=== PATIENT | female | born 1995 | race Caucasian/White ===

== ENCOUNTER 2017-04-16 10:14 | Day surgery (SDC) | payer BC ==
[2017-04-13 13:42] LABS: BASOPHILS % (AUTO) 0.3 % (0.0-2.0); EOSINOPHILS # (AUTO) 0.1 K/uL (0.0-0.4); EOSINOPHILS % (AUTO) 0.6 % (0.0-4.0); HEMATOCRIT 41.5 % (36-48); HEMOGLOBIN 13.8 g/dL (12.0-16.0); LYMPHOCYTES # (AUTO) 3.2 K/uL (1.0-5.5); LYMPHOCYTES % (AUTO) 34.3 % (20.5-51.5); MEAN CORPUSCULAR HEMOGLOBIN 30 pg (27-31); MEAN CORPUSCULAR HGB CONC 33 % (32-36); MEAN CORPUSCULAR VOLUME 90 fL (79.0-98.0); MONOCYTES # (AUTO) 0.6 K/uL (0.0-1.0); MONOCYTES % (AUTO) 6.3 % (1.7-9.3); NEUTROPHILS # (AUTO) 5.5 K/uL (1.8-7.7); NEUTROPHILS % (AUTO) 58.5 % (40.0-70.0); PLATELET COUNT (AUTO) 388 K/uL (130-430); RED BLOOD CELL COUNT(AUTO) 4.62 MIL/uL (4.2-6.2); RED CELL DISTRIBUTION WIDTH 12.5 % (9.0-15.0); WHITE BLOOD COUNT (AUTO) 9.4 K/uL (4.8-10.8)
[2017-04-13 14:14] LABS: ALBUMIN 3.9 g/dL (3.4-4.8); CREATININE 0.81 mg/dL (0.55-1.30); POTASSIUM 3.8 mmol/L (3.5-5.1); TOTAL BILIRUBIN 0.4 mg/dL (0.0-1.0)
[2017-04-13 14:22] LABS: CALCIUM 8.9 mg/dL (8.4-11.0)
[~2017-04-16] VITALS: Ht 165.1 cm; Wt 101.6 kg
[2017-04-16] MEDS ORDERED: MIDAZOLAM HCL 5 MG/ML VIAL (VERSED) IV ONE (12:30)
[2017-04-16] MEDS ORDERED: DEXAMETHASONE SOD PHOSPHATE 4 MG/ML VIAL IVP ONE (12:30)
[2017-04-16] MEDS ORDERED: fentaNYL CITRATE/PF 100 MCG/2 ML AMP IVP ONE (12:30)
[2017-04-16] MEDS ORDERED: SEVOFLURANE 15 MIN GAS INH ONE (12:30)
[2017-04-16] MEDS ORDERED: NS IRRIG SOLN 1000 ML IR ONE (12:30)
[2017-04-16] MEDS ORDERED: LR 1,000 ML IV.SOLN IV ONE (12:30)
[2017-04-16] MEDS ORDERED: ONDANSETRON HCL 4 MG/2 ML VIAL IVP ONE (12:30)
[2017-04-16] MEDS ORDERED: ROCURONIUM BROMIDE 10 MG/ML (ZEMURON) IV ONE (12:30)
[2017-04-16] MEDS ORDERED: PROPOFOL 200MG/ 20ML VIAL (DIPRIVAN) IV ONE (12:30)
[2017-04-16] MEDS ORDERED: KETOROLAC TROMETHAMINE 30 MG VIAL IVP ONE (12:30)
[2017-04-16] MEDS ORDERED: ALFENTANIL HCL 1000 MCG/2 ML AMP IVP ONE (12:30)
[2017-04-16] MEDS ORDERED: SUCCINYLCHOLINE CHLORIDE 20 MG/ML(QUELICIN) IVP ONE (12:30)
[2017-04-16] MEDS ORDERED: MORPHINE 4 MG/ML INJ. SYRINGE IVP PRN (12:45)
[2017-04-16] MEDS ORDERED: IBUPROFEN 800 MG TABLET PO PRN (12:45)
[2017-04-16] MEDS ORDERED: ACETAMINOPHEN/CODEINE 300 MG-30 MG TABLET PO PRN (12:45)
[2017-04-16] MEDS ORDERED: ONDANSETRON HCL 4 MG/2 ML VIAL IVP PRN (12:45)
[2017-04-16] MEDS ORDERED: LR 1,000 ML IV SCH (13:36)
[2017-04-16] MEDS ORDERED: MEPERIDINE HCL/PF 25 MG/ML DISP.SYRIN IVP PRN (13:45)
[2017-04-16] MEDS ORDERED: HYDROmorphone 1 MG INJ. 1 MG/ML AMPUL IVP PRN (13:45)
[2017-04-16] MEDS ORDERED: HYDROmorphone 2 MG/ML VIAL IVP PRN ×2 (13:45)
[2017-04-16] MEDS ORDERED: MIDAZOLAM HCL 2 MG/2 ML VIAL (VERSED) ONE (13:49)
[2017-04-16] MEDS ORDERED: FLUMAZENIL 0.1 MG/ML IVP ONE ×2 (14:02→14:15)
[2017-04-16] MEDS ORDERED: MIDAZOLAM HCL 5 MG/5 ML VIAL IVP ONE (14:15)
[2017-04-16] MEDS ORDERED: ACETAMINOPHEN/CODEINE 300 MG-30 MG TABLET ONE (15:17)
[2017-04-16 16:46] VITALS: BP_SYST 117
== END 2017-04-16 17:35 | disposition home or self-care (01) ==
LOC: SDS 10:14 → STU 10:15 → SDS 17:35
PROVIDERS: ATTEND Obstetrics & Gynecology
DX: N80.3 Endometriosis of pelvic peritoneum (principal); N83.202 Unspecified ovarian cyst, left side; N83.201 Unspecified ovarian cyst, right side; E66.01 Morbid (severe) obesity due to excess calories; Z98.890 Other specified postprocedural states
CPT/HCPCS: 36415; 58662; 80053; 84702; 85025; C1727; J0330; J1100; J1885; J2250; J2405; J2704; J3010; J3465; J3490 ×2; J7120

== ENCOUNTER 2017-11-21 10:24 | Day surgery (SDC) | payer BC ==
[2017-11-19 12:54] LABS: ALBUMIN 3.8 g/dL (3.4-4.8); CALCIUM 8.9 mg/dL (8.4-11.0); CREATININE 0.83 mg/dL (0.55-1.30); POTASSIUM 3.8 mmol/L (3.5-5.1); TOTAL BILIRUBIN 0.7 mg/dL (0.0-1.0)
[2017-11-19 12:56] LABS: BASOPHILS # (AUTO) 0.1 K/uL (0.0-0.2); BASOPHILS % (AUTO) 1.7 % (0.0-2.0); EOSINOPHILS # (AUTO) 0.1 K/uL (0.0-0.4); EOSINOPHILS % (AUTO) 0.8 % (0.0-4.0); HEMATOCRIT 38.3 % (36-48); HEMOGLOBIN 12.9 g/dL (12.0-16.0); LYMPHOCYTES # (AUTO) 2.5 K/uL (1.0-5.5); LYMPHOCYTES % (AUTO) 36.3 % (20.5-51.5); MEAN CORPUSCULAR HEMOGLOBIN 30 pg (27-31); MEAN CORPUSCULAR HGB CONC 34 % (32-36); MEAN CORPUSCULAR VOLUME 90 fL (79.0-98.0); MONOCYTES # (AUTO) 0.4 K/uL (0.0-1.0); MONOCYTES % (AUTO) 5.5 % (1.7-9.3); NEUTROPHILS # (AUTO) 3.8 K/uL (1.8-7.7); NEUTROPHILS % (AUTO) 55.7 % (40.0-70.0); PLATELET COUNT (AUTO) 362 K/uL (130-430); RED BLOOD CELL COUNT(AUTO) 4.28 MIL/uL (4.2-6.2); RED CELL DISTRIBUTION WIDTH 12.5 % (9.0-15.0); WHITE BLOOD COUNT (AUTO) 6.9 K/uL (4.8-10.8)
[~2017-11-21] VITALS: Ht 166.4 cm; Wt 114.8 kg
[~2017-11-21 10:24] MED LIST: CEFAZOLIN SOD 2 GM in D5W 50 ML IV ONE
[2017-11-21] MEDS ORDERED: ONDANSETRON HCL 4 MG/2 ML VIAL IVP ONE (12:30)
[2017-11-21] MEDS ORDERED: BUPIVACAINE /PF 0.25% 30 ML VIAL INJ ONE (12:30)
[2017-11-21] MEDS ORDERED: LR 1,000 ML IV.SOLN IV ONE (12:30)
[2017-11-21] MEDS ORDERED: MIDAZOLAM HCL 5 MG/5 ML VIAL IVP ONE (12:30)
[2017-11-21] MEDS ORDERED: PROPOFOL 200MG/ 20ML VIAL (DIPRIVAN) IV ONE (12:30)
[2017-11-21] MEDS ORDERED: SUCCINYLCHOLINE CHLORIDE 20 MG/ML(QUELICIN) IVP ONE (12:30)
[2017-11-21] MEDS ORDERED: ROCURONIUM BROMIDE 10 MG/ML (ZEMURON) IV ONE (12:30)
[2017-11-21] MEDS ORDERED: NS IRRIG SOLN 1000 ML IR ONE (12:30)
[2017-11-21] MEDS ORDERED: KETOROLAC TROMETHAMINE 30 MG VIAL IVP ONE (12:30)
[2017-11-21] MEDS ORDERED: SEVOFLURANE 15 MIN GAS INH ONE (12:30)
[2017-11-21] MEDS ORDERED: DEXAMETHASONE SOD PHOSPHATE 4 MG/ML VIAL IVP ONE (12:30)
[2017-11-21] MEDS ORDERED: fentaNYL CITRATE 250 MCG/5 ML AMP IV ONE (12:30)
[2017-11-21] MEDS ORDERED: ONDANSETRON HCL 4 MG/2 ML VIAL IVP PRN (13:30)
[2017-11-21] MEDS ORDERED: ACETAMINOPHEN/CODEINE 300 MG-30 MG TABLET PO PRN (13:30)
[2017-11-21] MEDS ORDERED: IBUPROFEN 800 MG TABLET PO PRN (13:30)
[2017-11-21] MEDS ORDERED: MORPHINE 4 MG/ML INJ. SYRINGE IVP PRN ×3 (13:30→14:15)
[2017-11-21] MEDS ORDERED: LR 1,000 ML IV SCH (14:03)
[2017-11-21] MEDS ORDERED: MEPERIDINE HCL/PF 25 MG/ML DISP.SYRIN IVP PRN (14:15)
[2017-11-21] MEDS ORDERED: MORPHINE SULFATE 10 MG/ML VIAL IVP PRN (14:15)
[2017-11-21] MEDS ORDERED: HYDROmorphone 2 MG/ML VIAL ONE (14:50)
[2017-11-21] MEDS ORDERED: HYDROmorphone 2 MG/ML VIAL IVP ONE (15:00)
[2017-11-21] MEDS ORDERED: ACETAMINOPHEN/CODEINE 300 MG-30 MG TABLET ONE (16:51)
[2017-11-21 20:14] VITALS: BP_SYST 116
== END 2017-11-21 19:50 | disposition home or self-care (01) ==
LOC: SDS 10:24
PROVIDERS: ATTEND Obstetrics & Gynecology
DX: N80.1 Endometriosis of ovary (principal); N80.3 Endometriosis of pelvic peritoneum; N80.0 Endometriosis of uterus; E66.01 Morbid (severe) obesity due to excess calories; F17.200 Nicotine dependence, unspecified, uncomplicated
CPT/HCPCS: 36415; 58662; 80053; 84702; 85025; C1727; J0330; J0690; J1100; J1170; J1885; J2250; J2405; J2704; J3010; J3490; J7060; J7120

== ENCOUNTER 2017-11-26 18:12 | Emergency (ER) | payer BC ==
[~2017-11-26] VITALS: Ht 165.1 cm; Wt 113.4 kg
[2017-11-26 18:24] VITALS: BP_SYST 116
[2017-11-26 19:08] LABS: BILIRUBIN,URINE NEGATIVE (NEGATIVE); BLOOD, URINE NEGATIVE (NEGATIVE); CLARITY/URINE SL CLOUDY (CLEAR); COLOR,URINE YELLOW (YELLOW); GLUCOSE,URINE NEGATIVE (NEGATIVE); KETONES,URINE NEGATIVE (NEGATIVE); LEUKOCYTE ESTERASE ,URINE 1+ (NEGATIVE); NITRITE, URINE NEGATIVE (NEGATIVE); PH,URINE 8.5 (5.0-8.0); PROTEIN URINE TRACE (NEGATIVE); UROBILINOGEN,URINE 0.2 (0.2-1.0)
[2017-11-26 19:12] LABS: BACTERIA,URINE MODERATE /HPF (None Seen); RBC,URINE 0-3 /HPF (0-3); TRICHOMONAS,URINE Moderate /HPF (None Seen)
[2017-11-26] MEDS ORDERED: metroNIDAZOLE 500 MG TABLET PO ONE ×2 (19:15→19:30)
[2017-11-26] MEDS ORDERED: SULFAMETHOXAZOLE/TRIMETHOPR DS 1 TABLET PO ONE (19:15)
[2017-11-26] MEDS ORDERED: cefTRIAXone 250 MG VIAL IM ONE (19:30)
[2017-11-26] MEDS ORDERED: AZITHROMYCIN 250 MG TABLET PO ONE (19:30)
[2017-11-26] MEDS ORDERED: LIDOCAINE 2%, 20 ML MDV INJ ONE (19:45)
[2017-11-26 19:51] VITALS: BP_SYST 116
[2017-11-29 09:03] LABS: CHLAMYDIA TRACHOMATIS NAA Negative (Negative); NEISSERIA GONORRHOEAE NAA Negative (Negative)
== END 2017-11-26 19:51 | disposition home or self-care (01) ==
LOC: SED 18:12
DX: N99.89 Other postprocedural complications and disorders of genitourinary system (principal); N39.0 Urinary tract infection, site not specified; A59.00 Urogenital trichomoniasis, unspecified
CPT/HCPCS: 81000; 87086; 87210; 87491; 87591; 96372; 99284; J0696; J2001; Q0144

== ENCOUNTER 2017-12-19 18:46 | Emergency (ER) | payer BC ==
[~2017-12-19] VITALS: Ht 167.6 cm; Wt 113.4 kg
[2017-12-19 19:01] VITALS: BP_SYST 131
[2017-12-19 22:12] LABS: BILIRUBIN,URINE NEGATIVE (NEGATIVE); CLARITY/URINE SL HAZY (CLEAR); COLOR,URINE YELLOW (YELLOW); GLUCOSE,URINE NEGATIVE (NEGATIVE); KETONES,URINE NEGATIVE (NEGATIVE); LEUKOCYTE ESTERASE ,URINE 1+ (NEGATIVE); NITRITE, URINE NEGATIVE (NEGATIVE); PROTEIN URINE 1+ (NEGATIVE); UROBILINOGEN,URINE 0.2 (0.2-1.0)
[2017-12-19 22:14] LABS: BASOPHILS # (AUTO) 0.1 K/uL (0.0-0.2); BASOPHILS % (AUTO) 1.3 % (0.0-2.0); EOSINOPHILS % (AUTO) 0.4 % (0.0-4.0); HEMOGLOBIN 13.6 g/dL (12.0-16.0); LYMPHOCYTES # (AUTO) 3.8 K/uL (1.0-5.5); LYMPHOCYTES % (AUTO) 36.5 % (20.5-51.5); MEAN CORPUSCULAR HEMOGLOBIN 31 pg (27-31); MEAN CORPUSCULAR HGB CONC 34 % (32-36); MEAN CORPUSCULAR VOLUME 91 fL (79.0-98.0); MONOCYTES # (AUTO) 0.5 K/uL (0.0-1.0); NEUTROPHILS # (AUTO) 5.9 K/uL (1.8-7.7); NEUTROPHILS % (AUTO) 56.8 % (40.0-70.0); PLATELET COUNT (AUTO) 361 K/uL (130-430); RED BLOOD CELL COUNT(AUTO) 4.39 MIL/uL (4.2-6.2); RED CELL DISTRIBUTION WIDTH 12.4 % (9.0-15.0); WHITE BLOOD COUNT (AUTO) 10.3 K/uL (4.8-10.8)
[2017-12-19 22:14] LABS: BLOOD, URINE TRACE (NEGATIVE)
[2017-12-19 22:30] LABS: BACTERIA,URINE MODERATE /HPF (None Seen)
[2017-12-19] MEDS ORDERED: NACL 0.9% 1,000 ML IV ONE (22:30)
[2017-12-19] MEDS ORDERED: VANCOMYCIN HCL 1,000 MG in NS 250 ML IV ONE (22:30)
[2017-12-19 22:31] LABS: CALCIUM 8.8 mg/dL (8.4-11.0); CREATININE 0.72 mg/dL (0.55-1.30); POTASSIUM 3.9 mmol/L (3.5-5.1)
[2017-12-19 22:31] LABS: CANNABINOID, URINE POSITIVE (NEG <=50); COCAINE, URINE POSITIVE (NEG <=150)
[2017-12-19 22:32] LABS: BARBITURATE, URINE NEGATIVE (NEG <=200); BENZODIAZEPINE, URINE NEGATIVE (NEG <=150); METHAMPHETAMINES SCREEN,URINE NEGATIVE (NEG <=500); OPIATE, URINE NEGATIVE (NEG <=100); PHENCYCLIDINE SCREEN,URINE NEGATIVE (NEG <=25); UR TRICYCLIC ANTIDEPRESSANTS NEGATIVE (NEG <=300); URINE AMPHETAMINE NEGATIVE (NEG <=500); URINE METHADONE NEGATIVE (NEG <=200); URINE OXYCODONE SCREEN NEGATIVE (NEG <=100); URINE PROPOXYPHENE SCREEN NEGATIVE (NEG <=300)
[2017-12-19 22:36] LABS: TOTAL BILIRUBIN 0.4 mg/dL (0.0-1.0)
[2017-12-19] MEDS ORDERED: VANCOMYCIN HCL 1000 MG/VIAL IV ONE (22:54)
[2017-12-19] MEDS ORDERED: HYDROcodone/ACETAMIN 10-325 MG TAB PO ONE (23:15)
[2017-12-19] MEDS ORDERED: KETOROLAC TROMETHAMINE 15 MG VIAL IVP ONE (23:15)
[2017-12-20] MEDS ORDERED: HYDROcodone/ACETAMIN 10-325 MG TAB PO ONE (00:45)
[2017-12-20 01:00] VITALS: BP_SYST 120
== END 2017-12-20 01:25 | disposition home or self-care (01) ==
LOC: SED 18:46
DX: L03.311 Cellulitis of abdominal wall (principal); A49.02 Methicillin resistant Staphylococcus aureus infection, unspecified site; G89.29 Other chronic pain; N80.9 Endometriosis, unspecified; R03.0 Elevated blood-pressure reading, without diagnosis of hypertension
CPT/HCPCS: 36415; 80053; 80307; 81000; 81025; 85025; 87070; 87086; 96365; 96366; 99285; J1885; J3370; J7030